=== PATIENT | male | born 1985 | race African-American/Black ===

== ENCOUNTER 2018-07-06 08:38 | Emergency (ER) | payer SELFPAY ==
[~2018-07-06] VITALS: Ht 170.2 cm; Wt 59.9 kg
[2018-07-06] MEDS ORDERED: AZITHROMYCIN 250 MG TAB PO ONE (10:00)
[2018-07-06] MEDS ORDERED: CEFTRIAXONE SOD 1 GM VIAL IM ONE (10:00)
[2018-07-06] MEDS ORDERED: ONDANSETRON HCL 4 MG ORAL DISINTEGRATING TAB PO ONE (10:00)
== END 2018-07-06 09:40 | disposition home or self-care (01) ==
LOC: FSED 08:38
DX: A54.01 Gonococcal cystitis and urethritis, unspecified (principal)
CPT/HCPCS: 81003; 99283; J0696; Q0162